=== PATIENT | female | born 1995 | race Caucasian/White ===

== ENCOUNTER 2022-10-23 21:57 | Emergency (ER) | payer SELFPAY ==
[2022-10-23 22:00] VITALS: BP 124/84; PULSE 88; RESP 16; TEMP 36.8; O2SAT 99; BMI 25.0
--- NOTE | 2022-10-23 22:08 | ED_ITS ---
HPI - Animal Bite General: Chief Complaint: Animal Bite Stated Complaint: Snake Bite Time Seen by Provider: 10/23/22 22:02 History of Present Illness: 26-year-old female comes in for evaluation of a probable snakebite. 1 hour before arrival she was bit by a snake. The snake was killed and was accompanied along with her. Visualization of the snake verifies a copperhead snake. Sharad butt has swelling to the dorsal foot but not past the ankle at this time. Patient reports minimal pain. Patient reports no fever chills or nausea or vomiting. Review of Systems General: Reports: 10 or more systems reviewed and unremarkable except in HPI and below Skin/Breast: Reports: other (Snakebite right foot) Physical Exam Const: COMMON NORMALS: alert HENMT: COMMON NORMALS: normocephalic HEAD & SCALP: normocephalic Neck/C-Spine: COMMON NORMALS: full ROM Resp: COMMON NORMALS: normal respiratory effort and clear to auscultation bilaterally AUSCULTATION: clear to auscultation bilaterally Cardio: COMMON NORMALS: regular rate and regular rhythm RATE: regular rate RHYTHM: regular rhythm Back/Pelvis: COMMON NORMALS: thoracic and lumbar spine normal to inspection Extremity: RIGHT LOWER EXTREMITY: Yes foot & digits (2 puncture wounds dorsal right foot, swelling of the foot, pulse intact) Right foot and digits: Yes inspection, Yes palpation, Yes ROM and Yes neurovascular exam Neuro: SENSORIUM/ORIENTATION: Yes alert Skin: TRAUMA: puncture (2 puncture dorsal right foot) Course ED course: 2300, no changes in swelling is noted at this time. Patient is resting well. 0030, patient has had a episode of emesis. Reports minimal pain. Swelling and redness has increased to the mid calf. 0230, decreasing swelling and tenderness was noted to the foot. Patient reported improvement in discomfort. Patient denied any nausea at this time. FDP was collected. 0300, patient felt well to go home. FDP showed 10-40 but no other significant abnormalities was noted. Reviewed exam and labs with Dr. Childers who agreed with plan for patient to be discharged home and return as needed. Vital Signs: Vital signs: Vital Signs Temperature 98.2 F 10/23/22 22:00 Pulse Rate 75 10/24/22 00:53 Respiratory Rate 16 10/24/22 00:53 Blood Pressure 113/89 10/24/22 00:53 Pulse Oximetry 100 07/08/23 00:53 Oxygen Delivery Me thod Room Air 10/23/22 22:00 MDM - Animal Bite Medical Decision Making 26-year-old female comes in today with snakebite to the right foot. On exam patient appears nontoxic. Patient does have some mild swelling to the right dorsal foot. 2 small puncture wounds are noted to the foot. Sensation is intact. Minimal to no bruising is noted to the foot. No significant redness is noted. Differential diagnosis includes dry snakebite, envenomation, shock, DIC. Initial labs were unremarkable. No abnormalities were noted to D-dimer, FDP, or PT and PTT at the 1 hour mari. Patient was monitored for 6 hours. Swelling improved to the foot and no swelling increased to the lower extremity. At the 6-hour mari FTP did show some mild elevation at 10 to 40 mcg/mL. Reviewed patient with Dr. Childers who agreed with plan for patient be discharged home and need for follow-up or return to the ER. Patient was instructed to go home and keep leg up for the next 24 to 48 hours. Drink plenty of fluids. Use acetamin ophen or ibuprofen for pain. Medications as needed for nausea. Patient should monitor for worsening redness and swelling to the leg. At time of discharge swelling was noted only to the foot with minimal redness. Patient reported understanding of care plan and need for follow-up or return. Lab Data 10/23/22 22:43 10/23/22 22:43 Laboratory Results WBC 12.5 10^3/uL (4.0-10.0) H 10/23/22 22:43 RBC 5.46 10^6/uL (4.1-5.3) H 10/23/22 22:43 Hgb 16.2 g/dL (11.5-15.3) H 10/23/22 22:43 Hct 49.6 % (37.0-47.0) H 10/23/22 22:43 MCV 90.8 fl (81-99) 10/23/22 22:43 MCH 29.7 pg (28.0-34.0) 10/23/22 22: MCHC 32.7 g/dL (30.0-36.0) 10/23/22 22:43 RDW 12.5 % (12.1-15.1) 10/23/22 22:43 Plt Count 215 10^3/cmm (130-400) 10/23/22 22:43 MPV 10.3 fL (7.4-10.4) 10/23/22 22:43 Neut % (Auto) 75.5 % 10/23/22 22:43 Lymph % (Auto) 18.6 % 10/23/22 22:43 Smyth % (Auto) 4.1 % 10/23/22 22:43 Eos % (Auto) 0.8 % 10/23/22 22:43 Baso % (Auto) 0.8 % 10/23/22 22:43 Neut # (Auto) 9.47 10^3/uL (1.8-7.7) H 10/23/22 22:43 Lymph # (Auto) 2.3 10^3/uL (0.8-4.8) 10/23/22 22:43 Smyth # (Auto) 0.5 10^3/uL (0.2-0.9) 10/23/22 22:43 Eos # (Auto) 0.1 10^3/uL (0.0-0.8) 10/23/22 22:43 Baso # (Auto) 0.1 10^3/uL (0.0-0.1) 10/23/22 22:43 Nucleated RBC % (auto) 0 % 10/23/22 22:43 Nucleated RBCs # 0.0 /100WBC 10/23/22 22:43 PT 13.90 SECONDS (12.1-14.9) 10/23/22 22:43 INR 1.04 (0.8-1.2) 10/23/22 22:43 APTT 28.4 SECONDS (23.9-36.7) 10/23/22 22:43 Fibrinogen 324 mg/dL (174-498) 10/23/22 22:43 Fibrin Degrad Products Pos, 10-40 ug/mL (NEG) H 10/24/22 02:34 D-Dimer <= 0.27 ug/mIFEU (0-0.59) 10/23/22 22:43 Sodium 138 mmol/L (136-145) 10/23/22 22:43 Potassium 3.7 mmol/L (3.5-5.1) 10/23/22 22:43 Chloride 103 mmol/L (98-107) 10/23/22 22:43 Carbon Dioxide 23 mmol/L (22-29) 10/23/22 22:43 Anion Gap 15.7 (5-19) 10/23/22 22:43 BUN 11 mg/dL (6-20) 10/23/22 22:43 Creatinine 0.8 mg/dL (0.5-0.9) 10/23/22 22:43 GFR Calculation 88.1 mL/min (90-130) L 10/23/22 22:43 Glucose 94 mg/dL (65-115) 10/23/22 22:43 Calculated Osmolality 285 mOsm/kg (285-295) 10/23/22 22:43 Calcium 9.1 mg/dL (8.5-10.5) 10/23/22 22:43 Total Bilirubin 0.3 mg/dL (0.15-1.2) 10/23/22 22:43 AST 14 U/L (0-32) 10/23/22 22:43 ALT 20 U/L (0-33) 10/23/22 22:43 Alkaline Phosphatase 60 U/L (35-105) 10/23/22 22:43 Total Protein 7.7 g/dL (6.6-8.7) 10/23/22 22:43 Albumin 4.9 g/dL (3.5-5.2) 10/23/22 22:43 Globulin 2.8 g/dL (1.3-4.6) 10/23/22 22:43 HCG, Qual Negative (Negative) 10/23/22 22:43 Discharge Plan Discharge Patient Disposition: Home Clinical Impression: Snake bite Condition: Stable Prescriptions: New ondansetron 4 mg tablet,disintegrating 4 mg PO Q8H PRN (Reason: nausea and vomiting) Qty: 10 0RF Discharge Orders: Discharge ED (Routine); Ordered 10/24/22 Ordered By: Anthony Li Discharge Diet: Usual diet Discharge Activity: Increase activity as tolerated Patient Instructions: Snake Bite (ED) Activity Restrictions/Additional Instructions: Home and rest. Drink plenty of water and fluids. Elevate foot to help with swe lling. Use acetaminophen and/or ibuprofen for pain and discomfort. Use ondansetron as needed for nausea. Follow-up with primary care for further instructions. Return to ER for worsening symptoms such as increasing swelling and redness to the leg, severe chest pain, or shortness of breath. 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
[2022-10-23 22:51] LABS: Basophils # 0.1 10^3/uL (0.0-0.1); Basophils % 0.8 %; Eosinophils # 0.1 10^3/uL (0.0-0.8); Eosinophils % 0.8 %; Hematocrit 49.6 % (37.0-47.0); Hemoglobin 16.2 g/dL (11.5-15.3); Lymphocytes # 2.3 10^3/uL (0.8-4.8); Lymphocytes % 18.6 %; Mean Corpuscular HGB Conc 32.7 g/dL (30.0-36.0); Mean Corpuscular Hemoglobin 29.7 pg (28.0-34.0); Mean Corpuscular Volume 90.8 fl (81-99); Mean Platelet Volume 10.3 fL (7.4-10.4); Monocytes # 0.5 10^3/uL (0.2-0.9); Monocytes % 4.1 %; Neutrophils # 9.47 10^3/uL (1.8-7.7); Neutrophils % 75.5 %; Nucleated Red Blood Cells % 0 %; Platelet Count 215 10^3/cmm (130-400); Red Blood Count 5.46 10^6/uL (4.1-5.3); Red Cell Distribution Width 12.5 % (12.1-15.1); White Blood Count 12.5 10^3/uL (4.0-10.0)
[2022-10-23 23:06] LABS: INR 1.04 (0.8-1.2)
[2022-10-23 23:07] LABS: Fibrinogen 324 mg/dL (174-498); Partial Thromboplastin Time 28.4 SECONDS (23.9-36.7)
[2022-10-23 23:09] LABS: Alanine Aminotransferase 20 U/L (0-33); Albumin Level 4.9 g/dL (3.5-5.2); Alkaline Phosphatase 60 U/L (35-105); Anion Gap 15.7 (5-19); Aspartate Amino Transferase 14 U/L (0-32); Blood Urea Nitrogen 11 mg/dL (6-20); Calcium 9.1 mg/dL (8.5-10.5); Carbon Dioxide 23 mmol/L (22-29); Chloride 103 mmol/L (98-107); Globulin 2.8 g/dL (1.3-4.6); Glomerular Filtration Rate 88.1 mL/min (90-130); Glucose 94 mg/dL (65-115); Osmolality Calculated 285 mOsm/kg (285-295); Potassium 3.7 mmol/L (3.5-5.1); Sodium 138 mmol/L (136-145); Total Bilirubin 0.3 mg/dL (0.15-1.2); Total Protein 7.7 g/dL (6.6-8.7)
[2022-10-23 23:10] LABS: D Dimer <= 0.27 ug/mIFEU (0-0.59)
[2022-10-23 23:14] LABS: HCG, Serum Qual Negative (Negative)
[2022-10-24] MEDS: ondansetron 2 mg/ML SDV 2 mL 4 MG IVP (00:49)
[2022-10-24 00:53] VITALS: BP 113/89; PULSE 75; RESP 16; O2SAT 100
[2022-10-24] MEDS: dexamethasone 10 mg/mL INJ 8 MG IVP (01:21)
[2022-10-24 03:21] VITALS: PULSE 61; RESP 16; O2SAT 99
== END 2022-10-24 03:24 | disposition home or self-care (01) ==
PROVIDERS: Emergency Provider Nurse Practitioner Family
DX: T63.091A Toxic effect of venom of other snake, accidental (unintentional), initial encounter (principal)
CPT/HCPCS: 36415; 80053; 84703; 85025; 85362; 85378; 85384; 85610; 85730; 96374; 96375; 99284; J1100; J2405

== ENCOUNTER → 2023-01-29 13:00 | Outpatient (BNVA) | payer SELFPAY | PROVIDERS: Visit Provider Nurse Practitioner Women's Health | DX: Z12.4 Encounter for screening for malignant neoplasm of cervix (principal) | CPT/HCPCS: 88175 ==

== ENCOUNTER → 2024-12-14 11:34 | Outpatient (BNVA) | payer SELFPAY | PROVIDERS: Visit Provider Nurse Practitioner Women's Health | DX: Z32.01 Encounter for pregnancy test, result positive (principal); Z34.90 Encounter for supervision of normal pregnancy, unspecified, unspecified trimester; O46.90 Antepartum hemorrhage, unspecified, unspecified trimester; R93.89 Abnormal findings on diagnostic imaging of other specified body structures | CPT/HCPCS: 76817; 81025; 84702; 86850; 86900 ==